=== PATIENT | male | born 1970 | race Caucasian/White ===

== ENCOUNTER 2017-04-30 09:52 | Emergency (ER) | payer OTHER ==
[~2017-04-30] VITALS: Ht 175.3 cm; Wt 90.6 kg
[~2017-04-30 09:52] MED LIST: AMOXICILLIN 8751 TAB PO; CELEXA10 MG PO; METFORMIN500 MG PO; NO HOME MEDICATIONS
[2017-04-30 10:05] VITALS: BP 170/92; TEMP 98.8
[2017-04-30] MEDS ORDERED: SOLIQUA 100 UNIT3 ML SQ (10:25)
[2017-04-30] MEDS ORDERED: BACTRIM DS 8001 TAB PO ×2 (10:25→11:48)
[2017-04-30] MEDS ORDERED: NORCO 325 MG-51 TAB PO (11:48)
[2017-04-30 12:22] VITALS: PULSE 95
== END 2017-04-30 12:05 | disposition home or self-care (01) ==
LOC: COL.ER 09:52
DX: L02.214 Cutaneous abscess of groin (principal); E11.9 Type 2 diabetes mellitus without complications; Z79.4 Long term (current) use of insulin

== ENCOUNTER 2017-05-05 12:00 | Outpatient (RCR) | payer OTHER ==
[2017-05-03 12:15] VITALS: BP 120/66; PULSE 89; TEMP 98.4
[2017-05-04 12:06] VITALS: BP 115/77; PULSE 81; TEMP 98.3
[~2017-05-05] VITALS: Ht 175.3 cm; Wt 90.6 kg
[~2017-05-05 12:00] MED LIST changes: +BACTRIM DS 8001 TAB PO; +NORCO 325 MG-51 TAB PO; +SOLIQUA 100 UNIT3 ML SQ
[2017-05-05 12:10] VITALS: BP 105/64; PULSE 74; TEMP 98.1
== END 2017-05-05 14:22 | disposition home or self-care (01) ==
LOC: EUO 12:00
DX: L03.90 Cellulitis, unspecified (principal)
CPT/HCPCS: J1956

== ENCOUNTER → 2020-04-08 | Outpatient (CLI) | payer SELFPAY ==
[2020-04-08 16:56] LABS: ALBUMIN 4.1 gm/dL (3.5-5.0); BILIRUBIN,TOTAL 0.6 mg/dL (0.0-1.0); CREATININE, serum 0.65 (0.66-1.25); POTASSIUM 4.8 mmol/L (3.4-5.0); TOTAL PROTEIN 7.5 gm/dL (6.4-8.2)
== END ==
LOC: COL.LAB 16:22
PROVIDERS: Family Medicine
DX: E11.65 Type 2 diabetes mellitus with hyperglycemia (principal)

== ENCOUNTER 2021-06-17 16:46 | Emergency (ER) | payer BC ==
[~2021-06-17] VITALS: Ht 175.3 cm; Wt 90.9 kg
[2021-06-17 16:54] VITALS: TEMP 98
[2021-06-17 17:11] LABS: BASO % 0.7 % (0.0-2.0); EOS # 0.4 (0.0-0.7); EOS % 7.1 % (0-4.0); GRAN # 2.8 (1.4-6.5); GRAN % 48.8 % (42.2-75.2); HEMATOCRIT 42.2 % (42.0-52.0); HEMOGLOBIN 14.8 g/dl (13.5-18.0); LYMPH # 1.9 (1.2-3.4); LYMPH % 33.7 % (20.0-51.0); MEAN CELL VOLUME 92 fl (80.0-100.0); MEAN CORPUSCULAR HEMOGLOBIN 32 pg (27.0-31.0); MEAN CORPUSCULAR HGB CONC 35 g/dl (33.0-37.0); MONO # 0.5 (0.1-0.6); MONO % 9.3 % (1.7-9.3); PLATELET COUNT 168 K/mm3 (130-400); RED BLOOD COUNT 4.57 M/mm3 (4.20-5.60); REDCELL DISTRIBUTION WIDTH-CV 11.9 % (11.5-14.5)
[2021-06-17 17:27] LABS: ALANINE AMINOTRANSFERASE 15 U/L (0-55); ALBUMIN 3.6 gm/dL (3.5-5.0); ALKALINE PHOSPHATASE 135 U/L (0-750); ANION GAP 12 mmol/L; AST,SGOT 15 U/L (5-34); BILIRUBIN,TOTAL 0.5 mg/dL (0.2-1.2); BLOOD UREA NITROGEN 13 mg/dL (8-26); CALCIUM 9.2 mg/dL (8.4-10.2); CARBON DIOXIDE 25 mEq/L (22-29); CHLORIDE 102 mmol/L (98-107); CREATINE KINASE 81 U/L (30-200); CREATININE, serum 0.87 mg/dL (0.72-1.25); GLUCOSE 279 mg/dL (70-99); POTASSIUM 4.1 mmol/L (3.5-4.5); SODIUM 139 mmol/L (136-145); TOTAL PROTEIN 7.2 gm/dL (6.2-8.1)
[2021-06-17 17:34] LABS: TROPONIN-I < 0.010 ng/mL (0.00-0.033)
[2021-06-17] MEDS ORDERED: PRINIVIL10 MG PO (18:37)
[2021-06-17 19:05] VITALS: BP 147/91; PULSE 106
== END 2021-06-17 19:05 | disposition home or self-care (01) ==
LOC: COL.ER 16:46
PROVIDERS: Emergency Medicine
DX: I10 Essential (primary) hypertension (principal); E11.9 Type 2 diabetes mellitus without complications; Z79.4 Long term (current) use of insulin
CPT/HCPCS: J0360; J7030

== ENCOUNTER 2021-10-10 09:44 | Emergency (ER) | payer BC ==
[~2021-10-10] VITALS: Ht 175.3 cm; Wt 93.2 kg
[~2021-10-10 09:44] MED LIST changes: +PRINIVIL10 MG PO
[2021-10-10 10:17] VITALS: TEMP 98.9
[2021-10-10 10:58] LABS: COLLECTION METHOD CLEAN CATCH
[2021-10-10 11:04] LABS: MUCOUS Present (NOT PRESENT); PH 6 (5-8); SQUAMOUS EPITHELIAL None Seen /hpf (0-10); URINE APPEARANCE Clear (CLEAR/HAZY); URINE BACTERIA None Seen /hpf (NONE SEEN); URINE BILIRUBIN Negative (NEGATIVE); URINE BLOOD Negative (NEGATIVE); URINE COLOR Yellow (YELLOW); URINE GLUCOSE 3+ (NEGATIVE); URINE KETONE 2+ (NEGATIVE); URINE LEUKOCYTE ESTERASE Negative (NEGATIVE); URINE NITRATE Negative (NEGATIVE); URINE PROTEIN(semi-quant) 2+ (NEGATIVE)
[2021-10-10 11:05] LABS: BASO % 0.3 % (0.0-2.0); EOS # 0.4 K/mm3 (0.0-0.7); EOS % 3.8 % (0.0-4.0); GRAN # 8.2 K/mm3 (1.4-6.5); HEMATOCRIT 41.3 % (42.0-52.0); HEMOGLOBIN 14.3 g/dl (13.5-18.0); LYMPH # 1.1 K/mm3 (1.2-3.4); LYMPH % 10.7 % (20.0-51.0); MEAN CELL VOLUME 92 fl (80.0-100.0); MEAN CORPUSCULAR HEMOGLOBIN 32 pg (27-31); MEAN CORPUSCULAR HGB CONC 35 g/dl (33.0-37.0); MEAN PLATELET VOLUME 9.5 fl (7.4-10.4); MONO # 0.8 K/mm3 (0.1-0.6); MONO % 7.9 % (1.7-9.3); PLATELET COUNT 174 K/mm3 (130-400); RED BLOOD COUNT 4.47 M/mm3 (4.20-5.60); REDCELL DISTRIBUTION WIDTH-CV 11.9 % (11.5-14.5)
[2021-10-10 11:29] LABS: ALBUMIN 3.1 gm/dL (3.5-5.0); BILIRUBIN,TOTAL 0.5 mg/dL (0.2-1.2); C-REACTIVE PROTEIN 19.43 mg/dL (0.00-0.50); CALCIUM 8.6 mg/dL (8.4-10.2); CREATININE, serum 0.79 mg/dL (0.72-1.25); POTASSIUM 4.4 mmol/L (3.5-4.5)
[2021-10-10] MEDS ORDERED: AMOXICILLIN 8751 TAB PO (12:36)
[2021-10-10 12:44] VITALS: BP 143/84; PULSE 97
== END 2021-10-10 12:44 | disposition home or self-care (01) ==
LOC: COL.ER 09:44
PROVIDERS: Nurse Practitioner Primary Care
DX: K57.92 Diverticulitis of intestine, part unspecified, without perforation or abscess without bleeding (principal); E11.9 Type 2 diabetes mellitus without complications; Z79.4 Long term (current) use of insulin
CPT/HCPCS: J1885; J7030; Q9967

== ENCOUNTER 2022-01-30 12:35 | Emergency (ER) | payer BC ==
[~2022-01-30] VITALS: Ht 175.3 cm; Wt 85.5 kg
[2022-01-30] MEDS ORDERED: FARXIGA10 PO (12:38)
[2022-01-30] MEDS ORDERED: CYMBALTA 60MG60 MG PO (12:38)
[2022-01-30] MEDS ORDERED: OZEMPIC0.25 MG/0. SQ (12:39)
[2022-01-30 12:40] VITALS: TEMP 97
[2022-01-30] MEDS ORDERED: TOUJEO300 U/ML SQ (12:40)
[2022-01-30 13:14] LABS: BASO % 0.5 % (0.0-2.0); EOS # 0.5 K/mm3 (0.0-0.7); EOS % 8.8 % (0.0-4.0); GRAN # 3.1 K/mm3 (1.4-6.5); GRAN % 55.5 % (42.2-75.2); HEMATOCRIT 43.4 % (42.0-52.0); HEMOGLOBIN 14.6 g/dl (13.5-18.0); LYMPH # 1.4 K/mm3 (1.2-3.4); LYMPH % 24.7 % (20.0-51.0); MEAN CELL VOLUME 98 fl (80.0-100.0); MEAN CORPUSCULAR HEMOGLOBIN 33 pg (27-31); MEAN CORPUSCULAR HGB CONC 34 g/dl (33.0-37.0); MEAN PLATELET VOLUME 9.9 fl (7.4-10.4); MONO # 0.6 K/mm3 (0.1-0.6); MONO % 10.1 % (1.7-9.3); PLATELET COUNT 181 K/mm3 (130-400); RED BLOOD COUNT 4.44 M/mm3 (4.20-5.60); REDCELL DISTRIBUTION WIDTH-CV 13.1 % (11.5-14.5)
[2022-01-30 13:30] LABS: ALANINE AMINOTRANSFERASE 16 U/L (0-55); ALBUMIN 3.7 gm/dL (3.5-5.0); ALKALINE PHOSPHATASE 77 U/L (40-150); ANION GAP 13 mmol/L (7-16); AST,SGOT 38 U/L (5-34); BILIRUBIN,TOTAL 0.3 mg/dL (0.2-1.2); BLOOD UREA NITROGEN 10 mg/dL (8-26); CALCIUM 8.8 mg/dL (8.4-10.2); CARBON DIOXIDE 20 mmol/L (22-29); CHLORIDE 104 mmol/L (98-107); CREATININE, serum 0.77 mg/dL (0.72-1.25); GLUCOSE 121 mg/dL (70-99); POTASSIUM 4.9 mmol/L (3.5-4.5); SODIUM 137 mmol/L (136-145); TOTAL PROTEIN 7.8 gm/dL (6.2-8.1)
[2022-01-30 13:36] LABS: TROPONIN-I < 0.010 ng/mL (0.00-0.033)
[2022-01-30 14:27] LABS: INR 0.9 (0.8-3.0); PROTHROMBIN TIME 10.2 SECONDS (9.7-12.8)
[2022-01-30 15:37] VITALS: BP 151/97; PULSE 94
== END 2022-01-30 15:40 | disposition home or self-care (01) ==
LOC: COL.ER 12:35
PROVIDERS: Family Medicine
DX: R55 Syncope and collapse (principal)
CPT/HCPCS: J7030

== ENCOUNTER 2022-03-26 07:52 | Observation (INO) | payer BC ==
[~2022-03-26] VITALS: Ht 175.3 cm; Wt 85.4 kg
[~2022-03-26 07:52] MED LIST changes: +CYMBALTA 60MG60 MG PO; +FARXIGA10 PO; +OZEMPIC0.25 MG/0. SQ; +TOUJEO300 U/ML SQ
[2022-03-26 09:40] LABS: BASO % 0.3 % (0.0-2.0); EOS # 0.1 K/mm3 (0.0-0.7); EOS % 1.2 % (0.0-4.0); GRAN # 8.3 K/mm3 (1.4-6.5); HEMOGLOBIN 15.5 g/dl (13.5-18.0); LYMPH % 10.4 % (20.0-51.0); MEAN CELL VOLUME 96 fl (80.0-100.0); MEAN CORPUSCULAR HEMOGLOBIN 33 pg (27-31); MEAN CORPUSCULAR HGB CONC 34 g/dl (33.0-37.0); MEAN PLATELET VOLUME 9.2 fl (7.4-10.4); MONO # 0.5 K/mm3 (0.1-0.6); MONO % 4.9 % (1.7-9.3); PLATELET COUNT 179 K/mm3 (130-400); RED BLOOD COUNT 4.71 M/mm3 (4.20-5.60); REDCELL DISTRIBUTION WIDTH-CV 11.6 % (11.5-14.5)
[2022-03-26 09:45] LABS: INR 0.9 (0.8-3.0); PROTHROMBIN TIME 10.5 SECONDS (9.7-12.8)
[2022-03-26 10:03] LABS: ALBUMIN 3.9 gm/dL (3.5-5.0); BILIRUBIN,TOTAL 0.3 mg/dL (0.2-1.2); CALCIUM 9.1 mg/dL (8.4-10.2); CREATININE, serum 0.82 mg/dL (0.72-1.25); POTASSIUM 4.1 mmol/L (3.5-4.5); TOTAL PROTEIN 7.7 gm/dL (6.2-8.1)
[2022-03-26 13:44] VITALS: BP 129/82; PULSE 93; TEMP 97.6
--- NOTE | 2022-03-26 14:38 | NUR ---
Patient to room 344 from the ED, A&Ox4. VSS 4L NC O2, no reported SOB. Chest tube RT side to water seal, intact. Reports pain with movement and deep breaths. IV CDI. Patient ambulated independently to the bed. Nurse oriented the patient to location, call light and room. No further needs expressed. Call light within reach. Bed alarm on
[2022-03-26 16:20] VITALS: BP 118/74; PULSE 93; TEMP 98.3
--- NOTE | 2022-03-26 17:44 | NUR ---
Patient resting in bed, A&Ox4. VSS 2L NC O2, no reported SOB. IV CDI. Chest tube intact to water seal. Reports pain to RT side. Pain medication given when requested. Call light within reach. Bed alarm on
[2022-03-26 20:00] VITALS: BP 146/77; PULSE 99; TEMP 98.1
--- NOTE | 2022-03-26 20:30 | NUR ---
PT IN BED. HAS SMALL BARREL CT TO RT CHEST, TO WATERSEAL. HAS GOOD TIDALING WITH RESPIRATIONS. TAKING SCHEDULED ES TYLENOL FOR PAIN. REPORTS PAIN 3/10 WITH REST, 9/10 WITH ACTIVITY. NO S/S OF DETOX, PT DOES DRINK DAILY.
--- NOTE | 2022-03-27 00:12 | NUR ---
PT ASSISTED TO EDGE OF BED, VOIDS 850CC YELLOW URINE PER URINAL. MEDICATED WITH MOTRIN 800MG PO AND OXYCODONE 5MG PO FOR RT CHEST PAIN.
[2022-03-27 00:15] VITALS: BP 148/88; PULSE 84; TEMP 98.3
--- NOTE | 2022-03-27 03:12 | NUR ---
PT MEDICATED WITH SCHEDULED ES TYLENOL, REPORTS GOOD PAIN CONTROL WITH OXYCODONE. CT REMAINS TO WATERSEAL.
[2022-03-27 04:02] VITALS: BP 128/76; PULSE 87; TEMP 97.9
--- NOTE | 2022-03-27 04:17 | NUR ---
MEDICATED WITH OXYCODONE 5MG PO FOR RT CHEST TUBE DISCOMFORT.
[2022-03-27 06:37] LABS: HEMATOCRIT 42.3 % (42.0-52.0); HEMOGLOBIN 14.2 g/dl (13.5-18.0); MEAN CELL VOLUME 99 fl (80.0-100.0); MEAN CORPUSCULAR HEMOGLOBIN 33 pg (27-31); MEAN CORPUSCULAR HGB CONC 34 g/dl (33.0-37.0); PLATELET COUNT 173 K/mm3 (130-400); RED BLOOD COUNT 4.26 M/mm3 (4.20-5.60); REDCELL DISTRIBUTION WIDTH-CV 11.9 % (11.5-14.5)
--- NOTE | 2022-03-27 06:40 | NUR ---
awake resting in bed, bedside shift report received from KYLAH Harden chest tube to water seal
[2022-03-27 06:50] LABS: CALCIUM 8.4 mg/dL (8.4-10.2); CREATININE, serum 0.78 mg/dL (0.72-1.25); POTASSIUM 3.4 mmol/L (3.5-4.5)
[2022-03-27 07:22] VITALS: BP 132/82; PULSE 81; TEMP 98.2
--- NOTE | 2022-03-27 07:30 | NUR ---
awake and watching TV, full assessment completed, see interventions for further info, has ordered breakfast
--- NOTE | 2022-03-27 10:33 | NUR ---
continues to rest in bed and looking at his phone
--- NOTE | 2022-03-27 12:15 | NUR ---
resting in bed, denies needs
[2022-03-27 12:21] VITALS: BP 133/76; PULSE 85; TEMP 98
--- NOTE | 2022-03-27 14:10 | NUR ---
watching TV, denies needs
[2022-03-27 17:13] VITALS: BP 132/88; PULSE 92; TEMP 98.6
--- NOTE | 2022-03-27 18:11 | NUR ---
sitting up in bed having supper, denies needs
--- NOTE | 2022-03-27 18:59 | NUR ---
bedside shift report given to KYLAH Christie
[2022-03-27 20:07] VITALS: BP 125/81; PULSE 88; TEMP 98.1
[2022-03-28 00:30] VITALS: BP 142/87; PULSE 86; TEMP 98
[2022-03-28 04:02] VITALS: BP 119/76; PULSE 75; TEMP 97.8
--- NOTE | 2022-03-28 05:55 | NUR ---
scheduled tylenol controlling pain, CT with small amt of red drainage in tubing, dsg CDI, to water seal. pt requested BGM check @ 0247, stated he felt low, BGM was 62, snack given and came up to 131. no signs of ETOH withdrawel noted or reported.
[2022-03-28 07:32] VITALS: BP 145/84; PULSE 83; TEMP 98
[2022-03-28] MEDS ORDERED: NORCO 325 MG-51 TAB PO (09:01)
--- NOTE | 2022-03-28 11:20 | NUR ---
DISCHARGE INSTRUCTIONS AND EDUCATION GIVEN TO PATIENT. FORMS SIGNED AND IN CHART. PATIENT IS WAITING FOR HIS TO PICK HIM UP BETWEEN 1-2 PM.
[2022-03-28 12:00] VITALS: BP 134/79; PULSE 90; TEMP 98.5
--- NOTE | 2022-03-28 15:20 | NUR ---
IV TAKEN OUT, PATIENT LEFT NEAR 1415, LEFT IN STABLE CONDITION WITH HIS .
== END 2022-03-29 14:15 | disposition home or self-care (01) ==
LOC: COL.ER 07:52 → SURG 10:28
PROVIDERS: Emergency Medicine; ADMIT Surgery
DX: S22.31XA Fracture of one rib, right side, initial encounter for closed fracture (principal); J93.9 Pneumothorax, unspecified; Z98.1 Arthrodesis status; W10.9XXA Fall (on) (from) unspecified stairs and steps, initial encounter
CPT/HCPCS: A9270; A9284; G0378; J1815; J2270; J3010